=== PATIENT | male | born 1980 | race Hispanic/Latino ===

== ENCOUNTER 2024-07-02 22:39 | Emergency (ER) | payer OTHER ==
[2024-07-02 23:36] LABS: #Basophils 0.05 10x3/uL (0.0-0.2); #Eosinophils 0.26 10x3/uL (0.0-0.5); #Monocytes 0.61 10x3/uL (0.0-1.1); #Neutrophils 3.87 10x3/uL (1.5-8.4); %Basophils 0.6 % (0.0-2.0); %Eosinophils 3.3 % (0.0-6.0); %Monocytes 7.8 % (0.0-10.0); %Neutrophils 49.9 % (40.0-75.0); Hematocrit 44.2 % (38.8-50.0); Hemoglobin 14.7 g/dL (13.5-17.5); Mean Corpuscular HGB CONC 33.3 g/dL (32.0-36.0); Mean Corpuscular Hemoglobin 28.6 pg (27.0-33.0); Mean Platelet Volume 10.9 fL (7.4-10.4); Platelet Count 248 10x3/uL (150-450); Red Blood Cell (RBC) Count 5.14 10x6/uL (4.32-5.72); White Blood Cell (WBC) Count 7.78 10x3/uL (3.5-10.5)
[2024-07-02 23:52] LABS: ALT (SGPT) 41 U/L (Less than 45); AST (SGOT) 31 U/L (11-34); Alkaline Phosphatase 80 U/L (40-110); Anion Gap 14 mmol/L (10-20); BUN (Urea Nitrogen) 11 mg/dL (8.9-20.6); Bilirubin, Total 0.7 mg/dL (0.3-1.2); Calc. Creatinine Clearance 0 mL/min (70-130); Calcium 8.9 mg/dL (7.8-10.44); Carbon Dioxide 21 mmol/L (22-29); Chloride 107 mmol/L (98-107); Estimated GFR 103; Globulin 3.1 g/dL (2.4-3.5); Glucose 304 mg/dL (70-105); Lipase 40 U/L (8-78); Potassium 4.1 mmol/L (3.5-5.1); Protein, Total 7.1 g/dL (6.0-8.3); Sodium 138 mmol/L (136-145)
[2024-07-02 23:58] LABS: Troponin I Less than 0.010 ng/mL (< 0.028)
[2024-07-03] MEDS ORDERED: Pantoprazole 40 MG DR.TAB ONE (00:53)
[2024-07-03] MEDS ORDERED: Famotidine 20 MG TAB ONE (00:53)
== END 2024-07-03 01:06 ==
LOC: CSHERS 22:39 → EEVIPCON 22:39 → CSHERS 07-03 01:06
DX: R07.89 Other chest pain (principal); R10.13 Epigastric pain; I10 Essential (primary) hypertension; E66.9 Obesity, unspecified; E78.5 Hyperlipidemia, unspecified; E11.9 Type 2 diabetes mellitus without complications; Z79.899 Other long term (current) drug therapy; Z79.82 Long term (current) use of aspirin; Z79.4 Long term (current) use of insulin; Z79.84 Long term (current) use of oral hypoglycemic drugs
CPT/HCPCS: 71045; 76705; 80053; 83690; 84484; 85025; 93005